=== PATIENT | female | born 1975 | race Caucasian/White ===

== ENCOUNTER 2021-06-02 13:16 | Emergency (ER) | payer SELFPAY ==
[2021-06-02] MEDS ORDERED: Tetracaine 0.5% PF 4 ML BOT ONE (13:34)
[2021-06-02] MEDS ORDERED: Fluorescein Opthalmic Strip ONE (13:34)
[2021-06-02] MEDS ORDERED: Ibuprofen 200 MG TAB ONE (13:51)
== END 2021-06-02 14:02 ==
LOC: NAV ERS 13:16
DX: H10.32 Unspecified acute conjunctivitis, left eye (principal); F17.210 Nicotine dependence, cigarettes, uncomplicated
CPT/HCPCS: 99283